=== PATIENT | male | born 1960 | race Caucasian/White ===

== ENCOUNTER 2017-05-08 11:23 | Day surgery (SDC) | payer BC ==
[2017-05-08] MEDS ORDERED: PROPOFOL 10 MG/ML VIAL IV ONE (14:00)
[2017-05-08] MEDS ORDERED: MIDAZOLAM HCL 2MG/2ML VIAL IV ONE (14:00)
[2017-05-08] MEDS ORDERED: LIDOCAINE 2% MDV (20MG/ML) 20ML VIAL IV ONE (14:00)
--- NOTE | 2017-05-13 17:31 | Operative Note ---
DATE OF SURGERY: 05/08/2017 OPERATION: COLONOSCOPY with cold snare and cold forceps polypectomy. PREOPERATIVE DIAGNOSIS: Personal history of colon polyps. POSTOPERATIVE DIAGNOSIS: Colon polyps. ESTIMATED BLOOD LOSS: Minimal. SPECIMENS: Ascending colon polyp and sigmoid colon polyp. PREPARATION QUALITY: Good to excellent. COMPLICATIONS: None apparent. PROCEDURE: After informed consent was obtained from the patient, he was placed in the left lateral decubitus position in the endoscopy suite, sedated and monitored by the department of anesthesia. Digital rectal exam was unremarkable. A well-lubricated [id number] colonoscope was inserted into the rectum and advanced to the cecum. Preparation quality was good to excellent. The cecum and ascending colon were unremarkable. The transverse colon revealed a 4-5 mm sessile polyp removed with a cold snare with minimal bleeding noted. The polyp was retrieved without difficulty. The remainder of the transverse colon and descending colon were unremarkable. There was a diminutive sigmoid colon polyp identified removed with a cold forceps. Minimal bleeding was noted. The rectum was unremarkable in forward and in J-turn views. The endoscope was straightened, the rectal ampulla deflated, and the endoscope was removed. RECOMMENDATIONS: The patient should resume his medications and diet. He will require repeat exam in 5 years for continued surveillance with a final determination to be based on tissue histology. As always, thank you for allowing me to participate in the healthcare of your patients. CC: DERREK Munoz
== END 2017-05-08 13:25 | disposition home or self-care (01) ==
LOC: HOP 11:23
PROVIDERS: ATTEND Internal Medicine Gastroenterology
DX: Z12.11 Encounter for screening for malignant neoplasm of colon (principal); Z86.010 Personal history of colon polyps; D12.3 Benign neoplasm of transverse colon; D12.5 Benign neoplasm of sigmoid colon; I10 Essential (primary) hypertension; E78.00 Pure hypercholesterolemia, unspecified